=== PATIENT | female | born 1955 | race Caucasian/White ===

== ENCOUNTER → 2016-11-15 | Outpatient (CLI) | payer BC ==
[~2016-11-15] MED LIST: ACYC400T PO; ALBUAER INH; CALCIUM W/D PO; COEN10CA5 PO; FEXO1TAB46 PO; MULTCAP42 PO; OMEGCAP2 PO; ONDA4TAB7 SL
--- NOTE | 2016-11-15 13:17 | MAMMOGRAPHY REPORT ---
BILATERAL DIGITAL SCREENING MAMMOGRAM WITH CAD: 11/15/2016 CLINICAL HISTORY: Routine screening. Patient has no complaints. TECHNIQUE: Current study was also evaluated with a Computer Aided Detection (CAD) system. Bilatera l CC and MLO views were obtained. COMPARISON: Comparison is made to exams dated: 11/11/2015 mammogram, 11/06/2014 mammogram, 10/27/2013 ma mmogram, 08/08/2011 mammogram, and 06/27/2010 mammogram - [facility]. BREAST COMPOSITION: There are scattered areas of fibroglandular density in both breasts. FINDINGS: No suspicious masses, calcifications, or areas of architectural distortion are noted in e ither breast. There has been no significant interval change compared to prior exams. Small nodular asymmetry seen within the right superior posterior breast on the MLO view is stable compared to prio r exams including the 2013 exam, and considered benign given long-term stability. Left superior altagracia ast asymmetry on the MLO view is also stable. IMPRESSION: ACR BI-RADS CATEGORY 2: BENIGN There is no mammographic evidence of malignancy. A 1 year screening mammogram is recommended. The p atient will receive written notification of the results. Approximately 10% of breast cancers are not detected with mammography. A negative mammographic repor t should not delay biopsy if a clinically suggestive mass is present. Nancy Solitario M.D. /:11/15/2016 07:50:32 Director Of Sleep: Gabriela Akhtar, [facility] letter sent: Normal 1/2 BI-RADS Code: ACR BI-RADS Category 2: Benign
== END | disposition home or self-care (01) ==
LOC: C.MAMM 07:11
PROVIDERS: ATTEND Obstetrics & Gynecology
DX: Z12.31 Encounter for screening mammogram for malignant neoplasm of breast (principal)

== ENCOUNTER → 2017-11-16 | Outpatient (CLI) | payer BC ==
--- NOTE | 2017-11-19 07:43 | MAMMOGRAPHY REPORT ---
BILATERAL DIGITAL SCREENING MAMMOGRAM TOMOSYNTHESIS WITH CAD: 11/16/2017 CLINICAL HISTORY: Routine screening. Patient has no complaints. TECHNIQUE: Breast tomosynthesis in addition to standard 2D mammography was performed. Current study was also evaluated with a Computer Aided Detection (CAD) system. COMPARISON: Comparison is made to exams dated: 11/15/2016 mammogram, 11/11/2015 mammogram, 10/27/2013 ma mmogram, 10/18/2012 mammogram, 08/08/2011 mammogram, and 06/27/2010 mammogram - [facility]. BREAST COMPOSITION: There are scattered areas of fibroglandular density in both breasts. FINDINGS: No suspicious masses, calcifications, or areas of architectural distortion are noted in ei ther breast. There has been no significant interval change compared to prior exams. IMPRESSION: ACR BI-RADS CATEGORY 1: NEGATIVE There is no mammographic evidence of malignancy. A 1 year screening mammogram is recommended. The pa tient will receive written notification of the results. Approximately 10% of breast cancers are not detected with mammography. A negative mammographic report should not delay biopsy if a clinically suggestive mass is present. Nancy Solitario M.D. /:11/16/2017 07:37:35 Industrial Maintenance Electrician: Nancy PETERS(Maximus)(Reuben), [facility] letter sent: Normal 1/2 BI-RADS Code: ACR BI-RADS Category 1: Negative
== END | disposition home or self-care (01) ==
LOC: C.MAMM 07:08
PROVIDERS: ATTEND Obstetrics & Gynecology
DX: Z12.31 Encounter for screening mammogram for malignant neoplasm of breast (principal)

== ENCOUNTER → 2018-02-05 | Outpatient (CLI) | payer BC | END | disposition home or self-care (01) | LOC: C.PAPS 18:33 | PROVIDERS: ATTEND Obstetrics & Gynecology | DX: Z01.419 Encounter for gynecological examination (general) (routine) without abnormal findings (principal) ==

== ENCOUNTER 2025-03-19 01:53 | Observation (INO) ==
[2025-03-19 01:58] VITALS: TEMP 97.7
--- NOTE | 2025-03-19 02:16 | Emergency Department Note ---
Impression & Plan Tongue swelling ED Provider Note HISTORY OF PRESENT ILLNESS: Patient is a 70-year-old female presenting with tongue swelling. Patient reports that she went to bed tonight at around 11:30 AM and noticed that she was having some swelling on the right side of her tongue. Reports that it feels like the tongue is getting more swollen and she now is having some slight difficulties with swallowing. She denies any new food or drink exposures. Denies any biting of the tongue or trauma to the neck. She has never had this happen before. She is not on any ABRIL inhibitors or ARB's for blood pressure. She denies any recent fevers or dental infections. She denies any difficulties breathing. She states that it just feels very full in the back of her throat. ROS: as above PHYSICAL EXAM: Constitutional: Patient appears in no acute distress. HENT: Head: Normocephalic and atraumatic. Eyes: EOMI, PERRL Mouth/Throat: Mucous membranes moist. Uvula midline. Patient is noted to have right sided tongue swelling. The tongue is not elevated or protruding from the mouth. Sublingual region is soft and nontender. Patient does have some fullness to the submandibular region on the right side of her neck. No obvious dental caries. Neck: Trachea midline. Neck supple. Musculoskeletal: No edema, tenderness or deformity noted. Skin: Warm and dry. No rash, erythema, pallor or cyanosis Psychiatric: Appropriate mood and affect for situation. Neurological: Alert and keenly responsive. CN II-XII grossly intact, moving all extremities equally and fully. MDM: - Vitals signs showed hypertension - History obtained via patient. History as above. - Chronic conditions affecting care: THIAGO - Differential diagnoses include, but are not limited to: Benigno's angina; angioedema; anaphylaxis; tongue laceration; pharyngitis - Order placed for continuous cardiac monitoring. At this time, monitor showed rate of 84 bpm with normal sinus rhythm, per my interpretation. - External medical records reviewed. - Laboratory workup interpreted by myself showed normal WBC; stable electrolytes; normal AST/ALT - On reassessment at 3:15 AM, the patient is still complaining of tongue swelling and a fullness on the right side of her neck. Unclear etiology for the tongue swelling and right neck fullness. However, did discuss obtaining CT imaging with the patient, to which she was agreeable. - CT soft tissue neck with IV contrast showed focal asymmetry/thickening noted along the right side of dorsum of tongue without obvious enhancement or abscess. - Given patient's persistent tongue swelling, will admit for airway monitoring. - Discussion was had with shoe parts caser about patient's case and need for admission - Hospitalist consulted for admission - [facility] ASSESSMENT AND PLAN: Diagnosis: Tongue swelling Plan: Admit Past Med/Surg History Problem List (Updated 03/19/25 @ 05:11 by Helene Antonio MD) Tongue swelling (Acute) Left knee DJD Encounter for pre-operative examination Syncope (Acute) Milia Encounter for Routine Gynecological Examination Medical History Recent urinary tract infection Nausea and vomiting after administration of anesthetic agent THIAGO (obstructive sleep apnea) Asthma Retinal detachment Telangiectasia Hx of migraine headaches Surgical History Hx of colonoscopy Hx of removal of cyst History of tonsillectomy and adenoidectomy S/P wisdom tooth extraction S/P eye surgery S/P dilation and curettage Family History Father Myocardial infarction Uncle Myocardial infarction Denies family history of Ovarian cancer Prostate cancer Breast cancer Colorectal cancer Social History Smoking Status: Never smoker Second Hand Exposure: No; Do You Dip or Chew Tobacco: No; Hx Alcohol Use: Yes Hx Substance Use: No Preferred Language: Slovak Communication Ability: Effective Piano Mover Required: No Beliefs That Will Affect Care: None Current Living Situation: Spouse Feels Safe at Home: Yes Assistive Devices: CPAP and Glasses Allergies Allergies Allergy/AdvReac Type Severity Reaction Status Date / Time amoxicillin Allergy Intermediate RASH Verified 02/09/25 10:57 Penicillins Allergy Intermediate Rash Verified 02/09/25 10:57 Sulfa (Sulfonamide Allergy Intermediate Rash Verified 02/09/25 10:57 Antibiotics) sulfamethoxazole Allergy Intermediate RASH Verified 02/09/25 10:57 trimethoprim Allergy Intermediate RASH Verified 02/09/25 10:57 Home Meds Home Medications Medication Instructions Recorded Confirmed ipratropium bromide 17 1 inh inhalation DIRECTED PRN 03/17/19 02/09/25 mcg/actuation HFA aerosol inhaler Shortness Of Breath Or Wheezing simvastatin 20 mg tablet 20 mg PO HS 03/17/19 02/09/25 calcium carbonate (Calcium 600) 1,200 mg PO BID 08/03/22 02/09/25 glucosamine sulfate 500 mg tablet 500 mg PO DAILY 08/03/22 02/09/25 (Glucosamine) multivitamin 1 tab PO QAM 08/03/22 02/09/25 Previous Rx's Medication Instructions Recorded ibuprofen 600 mg tablet 600 mg PO TID PRN pain #20 tabs 08/21/22 acyclovir 400 mg tablet 400 mg PO DAILY #90 tabs 04/28/24 Results & Data (ED) Vital Signs Vital Signs - 24 hr 03/19/25 01:54 03/19/25 01:56 03/19/25 02:00 Temperature 36.5 C 36.5 C Temperature Source Temporal Artery Scan Oral Pulse Rate 84 Pulse Rate [Right Finger] 70 Respiratory Rate 18 16 Respiratory Effort / Characteristics Non-Labored Spontaneous Respiratory Depth Normal Respiratory Pattern Regular Blood Pressure 153/80 H Blood Pressure [Right Arm] 145/81 H Blood Pressure Mean 104 Blood Pressure Mean [Right Arm] 102 Pulse Oximetry 98 98 96 Oxygen Delivery Method Room Air Room Air Room Air Sepsis Recent Fever Within 48 Hours No Sepsis New/Unexplained Change in Mental Status No Sepsis Action Taken by Nursing No Action Required 03/19/25 02:25 03/19/25 03:28 03/19/25 04:00 Temperature 36.5 C Temperature Source Temporal Artery Scan Pulse Rate 67 Pulse Rate [Right Finger] 83 Respiratory Rate 18 Respiratory Effort / Characteristics Non-Labored Spontaneous Respiratory Depth Normal Respiratory Pattern Regular Blood Pressure Blood Pressure [Right Arm] 133/94 Blood Pressure Mean Blood Pressure Mean [Right Arm] 107 Pulse Oximetry 99 Oxygen Delivery Method Room Air Room Air Sepsis Recent Fever Within 48 Hours Sepsis New/Unexplained Change in Mental Status Sepsis Action Taken by Nursing Laboratory Data 03/19/25 02:17 03/19/25 02:17 Lab Results 03/19/25 Range/Units 02:17 WBC 7.37 (4.8-10.8) K/ul RBC 4.04 L (4.20-5.40) M/uL Hgb 11.9 L (12.0-16.0) g/dl Hct 36.9 L (37.0-47.0) % MCV 91.3 (80.0-100.0) fL MCH 29.5 (25.0-34.0) pg MCHC 32.2 (32.0-36.0) g/dL RDW Std Deviation 44.8 (36.4-46.3) fL RDW Coeff of Shravan 13.2 (11.5-14.5) % Plt Count 270 (130-400) K/uL MPV 10.1 (9.4-12.4) fL Immature Gran % (Auto) 0.3 % Neut % (Auto) 43.9 % Lymph % (Auto) 43.0 % Bent % (Auto) 9.2 % Eos % (Auto) 2.8 % Baso % (Auto) 0.8 % Neut # (Auto) 3.23 (1.40-6.50) K/uL Lymph # (Auto) 3.17 (1.20-3.40) K/uL Bent # (Auto) 0.68 H (0.11-0.59) K/uL Eos # (Auto) 0.21 (0.00-0.50) K/uL Baso # (Auto) 0.06 (0.00-0.20) K/uL Immature Gran # (Auto) 0.02 (0.01-0.20) K/uL Sodium 138 (136-145) mmol/L Potassium 4.1 (3.5-5.1) mmol/L Chloride 105 (98-107) mmol/L Carbon Dioxide 28 (21-32) mmol/L Anion Gap 5 (3-11) BUN 18 (6-23) mg/dl Creatinine 0.74 (0.6-1.2) mg/dl Est Cr Clr Drug Dosing 70.4 ml/min eGFR 86.98 BUN/Creatinine Ratio 24.3 H (10-20) Glucose 114 H (70-99(Fasting)) mg/dl Calcium 9.1 (8.6-10.3) mg/dl Total Bilirubin 0.4 (0.2-1.0) mg/dl AST 20 (13-39) U/L ALT 18 (7-52) U/L Alkaline Phosphatase 39 (34-104) U/L Total Protein 6.6 (6.0-8.3) gm/dl Albumin 4.0 (3.4-5.0) gm/dl Globulin 2.6 (2.5-4.0) gm/dl Albumin/Globulin Ratio 1.5 (0.9-2) Administered Medications Discontinued Medications Diphenhydramine HCl (Diphenhydramine 50 Mg/Ml Vial) 50 mg IV NOW STA Stop: 03/19/25 02:12 Last Admin: 03/19/25 02:18 Dose: 50 mg Documented By: FAVIOLA Famotidine (Pepcid 20mg Iv Push) 20 mg in 5 mls @ 2.5 mls/min IV NOW STA Stop: 03/19/25 02:12 Last Admin: 03/19/25 02:19 Dose: 2.5 mls/min Documented By: FAVIOLA Ioversol (Optiray 320 100ml) 100 ml IV ONCE ONE Stop: 03/19/25 03:57 Last Admin: 03/19/25 03:56 Dose: 93 ml Documented By: SHERRY Methylprednisolone (Methylprednisolone 125 Mg/2 Ml Vial) 80 mg IV NOW STA Stop: 03/19/25 02:12 Last Admin: 03/19/25 02:18 Dose: 80 mg Documented By: FAVIOLA Imaging Data Radiologist's Impression: Soft Tissue Neck CT 03/19/25 03:18 EXAM: CT soft tissue neck w con CLINICAL HISTORY: R sided neck swelling; R tongue swelling TECHNIQUE: Computed tomography of the neck was performed with intravenous contrast. Contiguous axial images were obtained. Reformatted coronal and sagittal images were also reviewed. If IV contrast material had not been administered, the likelihood of detecting abnormalities relevant to the patient's condition would have been substantially decreased. CT scan was performed according to ALARA (as low as reasonably achievable). COMPARISON: None. FINDINGS: Focal asymmetry/thickening is noted involving right side of dorsum of tongue without obvious enhancement - MRI correlation is suggested. Included intracranial substances, orbits, and paranasal sinuses are grossly unremarkable. Nasopharynx, oropharynx, oral cavity, hypopharynx and larynx are grossly unremarkable. Parotid, submandibular and thyroid glands are grossly unremarkable. Bilateral neck vessels are patent and show normal course, calibre and opacification. Scattered bilateral jugulo-digastric lymph nodes are present however, none are pathologically enlarged. Visualized included lung apices are grossly clear, and no acute osseous abnormality detected. IMPRESSION: Focal asymmetry/thickening is noted involving right side of dorsum of tongue without obvious enhancement. Suboptimal evaluation of the oral cavity due to extensive metallic artifacts from the dental implants. No other abnormality seen. Electronically signed by Gucci Mosqueda 03-19-2025 05:16 AM Discharge Plan Visit Data Chief Complaint: Allergic Reaction Stated Complaint: TONGUE SWELLING ED Provider: Helene Antonio Discharge Problem: Tongue swelling Condition: Fair Forms Stand Alone Forms: [facility] Prescriptions Prescriptions: No Action acyclovir 400 mg tablet 400 mg PO DAILY Qty: 90 3RF ipratropium bromide 17 mcg/actuation HFA aerosol inhaler 1 inh inhalation DIRECTED PRN (Reason: Shortness Of Breath Or Wheezing) simvastatin 20 mg tablet 20 mg PO HS ibuprofen 600 mg tablet 600 mg PO TID PRN (Reason: pain) Qty: 20 0RF multivitamin Tablet 1 tab PO QAM glucosamine sulfate [Glucosamine] 500 mg Tablet 500 mg PO DAILY Rx Instructions: administer with meals calcium carbonate [Calcium 600] 600 mg calcium (1,500 mg) Tablet 1,200 mg PO BID Referrals Referrals: Gabby Broussard PA-C [Primary Care Provider] -
[2025-03-19] MEDS: diphenhydrAMINE 50 MG/ML VIAL IV STA (02:18)
[2025-03-19] MEDS: FAMOTIDINE 20MG IV PUSH 20 MG/5 ML SYR IV STA (02:19)
[2025-03-19 02:28] LABS: Hematocrit (blood only) 36.9 % (37.0-47.0); Hemoglobin 11.9 g/dl (12.0-16.0); Immature Granulocytes # (auto) 0.02 K/uL (0.01-0.20); Immature Granulocytes % (auto) 0.3 %; Mean Corpuscular Hemoglobin 29.5 pg (25.0-34.0); Mean Corpuscular Volume 91.3 fL (80.0-100.0); Platelet Count 270 K/uL (130-400); RDW Standard Deviation 44.8 fL (36.4-46.3); Red Blood Count 4.04 M/uL (4.20-5.40); White Blood Count 7.37 K/ul (4.8-10.8)
[2025-03-19 02:45] LABS: Alanine Aminotransferase 18.0 U/L (7-52); Albumin Globulin Ratio 1.5 (0.9-2); Alkaline Phosphatase 39.0 U/L (34-104); Anion Gap 5.0 (3-11); Bilirubin,Total 0.4 mg/dl (0.2-1.0); Blood Urea Nitrogen 18.0 mg/dl (6-23); Calcium 9.1 mg/dl (8.6-10.3); Carbon Dioxide 28.0 mmol/L (21-32); Chloride 105.0 mmol/L (98-107); Creatinine Clr Calc Pharmacy 70.4 ml/min; Globulin 2.6 gm/dl (2.5-4.0); Glucose 114.0 mg/dl (70-99(Fasting)); Potassium 4.1 mmol/L (3.5-5.1); Sodium 138.0 mmol/L (136-145); Total Protein 6.6 gm/dl (6.0-8.3)
[2025-03-19] MEDS: OPTIRAY 320 100ml IV ONE (03:56)
--- NOTE | 2025-03-19 05:16 | CT Scan Report ---
EXAM: CT soft tissue neck w con CLINICAL HISTORY: R sided neck swelling; R tongue swelling TECHNIQUE: Computed tomography of the neck was performed with intravenous contrast. Contiguous axial images were obtained. Reformatted coronal and sagittal images were also reviewed. If IV contrast material had not been administered, the likelihood of detecting abnormalities relevant to the patient's condition would have been substantially decreased. CT scan was performed according to ALARA (as low as reasonably achievable). COMPARISON: None. FINDINGS: Focal asymmetry/thickening is noted involving right side of dorsum of tongue without obvious enhancement - MRI correlation is suggested. Included intracranial substances, orbits, and paranasal sinuses are grossly unremarkable. Nasopharynx, oropharynx, oral cavity, hypopharynx and larynx are grossly unremarkable. Parotid, submandibular and thyroid glands are grossly unremarkable. Bilateral neck vessels are patent and show normal course, calibre and opacification. Scattered bilateral jugulo-digastric lymph nodes are present however, none are pathologically enlarged. Visualized included lung apices are grossly clear, and no acute osseous abnormality detected. IMPRESSION: Focal asymmetry/thickening is noted involving right side of dorsum of tongue without obvious enhancement. Suboptimal evaluation of the oral cavity due to extensive metallic artifacts from the dental implants. No other abnormality seen. Electronically signed by Gucci Mosqueda 03-19-2025 05:16 AM
[2025-03-19] MEDS ORDERED: ALBUT/IPRATROP 3MG/0.5MG NEB 3 ML VIAL NEB PRN (05:44)
--- NOTE | 2025-03-19 06:08 | History & Physical Report ---
Date of Service March 19, 2025 Assessment & Plan (1) Tongue swelling: (2) Allergic reaction: (3) Asthma: (4) Hyperlipidemia: Plan The patient is a 70-year-old female with past medical history including asthma, hyperlipidemia, left knee osteoarthritis and on chronic viral prophylaxis. The patient presents to the emergency department with complaint of tongue swelling more so on the right side that she noticed around 11:30 PM, she was going to bed. As her tongue began to continue to swell more, she became concerned, and presented to the ED for assessment. In the emergency department, CT soft tissue neck was ordered and pending. In the ED she received the following: Solu-Medrol 80 mg IV, Benadryl 50 mg IV, and famotidine 20 mg IV. She was then referred for evaluation for admission. Patient reports that she had a flu shot 3 days ago. She also reports that she was at the [facility] yesterday, where they were undergoing course maintenance. Allergic reaction/asymmetric swelling right lateral tongue compared to left- Patient had a flu shot 3 days ago, but unlikely source of reaction Patient was at the [facility] yesterday, and she reports that there was work being performed on lawn maintenance etc. Patient received from the ED the following: Solu-Medrol 80 mg IV, Benadryl 50 mg IV, and famotidine 20 mg IV Admitted on the following: Methylprednisolone 40 mg IV every 8 hours, Benadryl 25 mg IV every 4 hours as needed, famotidine 20 mg IV twice daily N.p.o. until received 500 cc of IV fluids, then if passes swallowing test, can gradually begin IV diet and advance as tolerated NSS + KCl 20 mEq at 100 mL/h x 1 L, complete the full liter Zofran 4 mg IV every 6 hours as needed Acetaminophen 1 g IV every 8 hours as needed for mild pain or fever Order RAST test for zone 3 allergens [place], and food allergen panel Asthma- Primarily exercise-induced Has good lung excursion, and minimal changes at bases DuoNebs every 2 hours as needed Can resume usual inhaler as needed upon discharge Hyperlipidemia- Hold simvastatin until taking oral Viral prophylaxis- Hold acyclovir until able to take oral intake History of Present Illness Chief Complaint: The patient presents to the emergency department with complaint of tongue swelling more so on the right side that she noticed around 11:30 PM, she was going to bed. As her tongue began to continue to swell more, she became conc erned, and presented to the ED for assessment. In the emergency department, CT soft tissue neck was ordered and pending. In the ED she received the following: Solu-Medrol 80 mg IV, Benadryl 50 mg IV, and famotidine 20 mg IV. She was then referred for evaluation for admission. Primary Care Provider: Gabby Broussard PA-C The patient is a 70-year-old female with past medical history including asthma, hyperlipidemia, left knee osteoarthritis and on chronic viral prophylaxis. The patient presents to the emergency department with complaint of tongue swelling more so on the right side that she noticed around 11:30 PM, she was going to bed. As her tongue began to continue to swell more, she became concerned, and presented to the ED for assessment. In the emergency department, CT soft tissue neck was ordered and pending. In the ED she received the following: Solu-Medrol 80 mg IV, Benadryl 50 mg IV, and famotidine 20 mg IV. She was then referred for evaluation for admission. Patient reports that she had a flu shot 3 days ago. She also reports that she was at the [facility] yesterday, where they were undergoing course maintenance. Allergies Allergy/AdvReac Type Severity Reaction Status Date / Time amoxicillin Allergy Intermediate RASH Verified 02/09/25 10:57 Penicillins Allergy Intermediate Rash Verified 02/09/25 10:57 Sulfa (Sulfonamide Allergy Intermediate Rash Verified 02/09/25 10:57 Antibiotics) sulfamethoxazole Allergy Intermediate RASH Verified 02/09/25 10:57 trimethoprim Allergy Intermediate RASH Verified 02/09/25 10:57 Home Medications Medication Instructions Recorded Confirmed Type ipratropium bromide 17 1 inh inhalation DIRECTED PRN 03/17/19 02/09/25 History mcg/actuation HFA aerosol inhaler Shortness Of Breath Or Wheezing simvastatin 20 mg tablet 20 mg PO HS 03/17/19 02/09/25 History calcium carbonate (Calcium 600) 1,200 mg PO BID 08/03/22 02/09/25 History glucosamine sulfate 500 mg tablet 500 mg PO DAILY 08/03/22 02/09/25 History (Glucosamine) multivitamin 1 tab PO QAM 08/03/22 02/09/25 History ibuprofen 600 mg tablet 600 mg PO TID PRN pain #20 tabs 08/21/22 02/09/25 Rx acyclovir 400 mg tablet 400 mg PO DAILY #90 tabs 04/28/24 02/09/25 Rx Past Med/Surg History Problem List (Updated 03/19/25 @ 06:03 by Shoaib Mcghee MD) Allergic reaction Tongue swelling (Acute) Left knee DJD Encounter for pre-operative examination Syncope (Acute) Milia Encounter for Routine Gynecological Examination Medical History (Updated 03/19/25 @ 06:03 by Shoaib Mcghee MD) Hyperlipidemia Recent urinary tract infection 08/03/22 treated [place] [facility] Nausea and vomiting after administration of anesthetic agent THIAGO (obstructive sleep apnea) cpap Asthma Exercise induced- uses daily Retinal detachment w/ B/L repair Telangiectasia Hx of migraine headaches has not had one in years Surgical History Hx of colonoscopy Hx of removal of cyst finger History of tonsillectomy and adenoidectomy S/P wisdom tooth extraction S/P eye surgery retinal detachment S/P dilation and curettage Family History Father Myocardial infarction Uncle Myocardial infarction Denies family history of Ovarian cancer Prostate cancer Breast cancer Colorectal cancer Social History Smoking Status: Never smoker Second Hand Exposure: No; Do You Dip or Chew Tobacco: No; Hx Alcohol Use: Yes Hx Substance Use: No Preferred Language: Uzbek Communication Ability: Effective 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 Beliefs That Will Affect Care: None Current Living Situation: Spouse Feels Safe at Home: Yes Assistive Devices: CPAP and Glasses Review of Systems Review of Systems: The patient denies chest pain, palpitations, shortness of breath, dyspnea on exertion, lower extremity swelling, fevers, chills, sweats, fatigue, nausea, vomiting, diarrhea , constipation, abdominal pain, pelvic pain, blood in urine or stool, dysuria, urinary frequency or urgency, lightheadedness, dizziness, headache, memory loss, loss of consciousness, rash, abnormal bruising or bleeding, imbalance, focal or generalized weakness, numbness or tingling in arms or legs, generalized arthralgias or myalgias, back or neck pain, or night sweats. The review of systems is otherwise negative other than for that already noted above, and at least 10 systems have been reviewed. Physical Exam Physical Exam: The patient is awake, alert and oriented 3, well developed and well nourished, normocephalic and atraumatic, lying in bed and in no acute distress. HEENT--PERRL, EOMI, mucous membranes dry. Swelling of tongue, most prominent on the right, with mild oropharyngeal edema, primarily on the right. No stridor Neck--supple. No JVD. No bruits. Thyroid normal, trachea midline, no adenop athy. Heart--normal S1 and S2. No murmurs, rubs or gallops. Lungs--few coarse breath sounds at the bases. No respiratory distress, no accessory muscle use. Abdomen--normal bowel sounds and soft. Nontender. Nondistended, no hernias or masses, no organomegaly. Extremities--no cyanosis or clubbing. No edema. There are good distal pulses b/l. Dermatologic--normal skin turgor, normal color, no abnormal lymph nodes, no rash. Neurologic--cranial nerves II through XII grossly intact. Rheumatologic--normal range of motion. Psychiatric--normal affect. Results & Data Results & Data Vital Signs (Past 12 Hours) Vital Signs Temp Pulse Pulse Resp BP BP Pulse Ox 03/19/25 04:00 36.5 C 83 18 133/94 99 03/19/25 03:28 67 03/19/25 02:25 03/19/25 02:00 36.5 C 70 16 145/81 H 96 03/19/25 01:56 36.5 C 84 18 153/80 H 98 03/19/25 01:54 98 O2 Del Method 03/19/25 04:00 Room Air 03/19/25 03:28 03/19/25 02:25 Room Air 03/19/25 02:00 Room Air 03/19/25 01:56 Room Air 03/19/25 01:54 Room Air Laboratory Results Laboratory Results WBC 7.37 K/ul (4.8-10.8) 03/19/25 02:17 RBC 4.04 M/uL (4.20-5.40) L 03/19/25 02:17 Hgb 11.9 g/dl (12.0-16.0) L 03/19/25 02:17 Hct 36.9 % (37.0-47.0) L 03/19/25 02:17 MCV 91.3 fL (80.0-100.0) 03/19/25 02:17 MCH 29.5 pg (25.0-34.0) 03/19/25 02:17 MCHC 32.2 g/dL (32.0-36.0) 03/19/25 02:17 RDW Std Deviation 44.8 fL (36.4-46.3) 03/19/25 02:17 RDW Coeff of Shravan 13.2 % (11.5-14.5) 03/19/25 02:17 Plt Count 270 K/uL (130-400) 03/19/25 02:17 MPV 10.1 fL (9.4-12.4) 03/19/25 02:17 Immature Gran % (Auto) 0.3 % 03/19/25 02:17 Neut % (Auto) 43.9 % 03/19/25 02:17 Lymph % (Auto) 43.0 % 03/19/25 02:17 Trimble % (Auto) 9.2 % 03/19/25 02:17 Eos % (Auto) 2.8 % 03/19/25 02:17 Baso % (Auto) 0.8 % 03/19/25 02:17 Neut # (Auto) 3.23 K/uL (1.40-6.50) 03/19/25 02:17 Lymph # (Auto) 3.17 K/uL (1.20-3.40) 03/19/25 02:17 Trimble # (Auto) 0.68 K/uL (0.11-0.59) H 03/19/25 02:17 Eos # (Auto) 0.21 K/uL (0.00-0.50) 03/19/25 02:17 Baso # (Auto) 0.06 K/uL (0.00-0.20) 03/19/25 02:17 Immature Gran # (Auto) 0.02 K/uL (0.01-0.20) 03/19/25 02:17 Sodium 138 mmol/L (136-145) 03/19/25 02:17 Potassium 4.1 mmol/L (3.5-5.1) 03/19/25 02:17 Chloride 105 mmol/L (98-107) 03/19/25 02:17 Carbon Dioxide 28 mmol/L (21-32) 03/19/25 02:17 Anion Gap 5 (3-11) 03/19/25 02:17 BUN 18 mg/dl (6-23) 03/19/25 02:17 Creatinine 0.74 mg/dl (0.6-1.2) 03/19/25 02:17 Est Cr Clr Drug Dosing 70.4 ml/min 03/19/25 02:17 eGFR 86.98 03/19/25 02:17 BUN/Creatinine Ratio 24.3 (10-20) H 03/19/25 02:17 Glucose 114 mg/dl (70-99(Fasting)) H 03/19/25 02:17 Calcium 9.1 mg/dl (8.6-10.3) 03/19/25 02:17 Total Bilirubin 0.4 mg/dl (0.2-1.0) 03/19/25 02:17 AST 20 U/L (13-39) 03/19/25 02:17 ALT 18 U/L (7-52) 03/19/25 02:17 Alkaline Phosphatase 39 U/L (34-104) 03/19/25 02:17 Total Protein 6.6 gm/dl (6.0-8.3) 03/19/25 02:17 Albumin 4.0 gm/dl (3.4-5.0) 03/19/25 02:17 Globulin 2.6 gm/dl (2.5-4.0) 03/19/25 02:17 Albumin/Globulin Ratio 1.5 (0.9-2) 03/19/25 02:17 Impressions Soft Tissue Neck CT 03/19/25 03:18 EXAM: CT soft tissue neck w con CLINICAL HISTORY: R sided neck swelling; R tongue swelling TECHNIQUE: Computed tomography of the neck was performed with intravenous contrast. Contiguous axial images were obtained. Reformatted coronal and sagittal images were also reviewed. If IV contrast material had not been administered, the likelihood of detecting abnormalities relevant to the patient's condition would have been substantially decreased. CT scan was performed according to ALARA (as low as reasonably achievable). COMPARISON: None. FINDINGS: Focal asymmetry/thickening is noted involving right side of dorsum of tongue without obvious enhancement - MRI correlation is suggested. Included intracranial substances, orbits, and paranasal sinuses are grossly unremarkable. Nasopharynx, oropharynx, oral cavity, hypopharynx and larynx are grossly unremarkable. Parotid, submandibular and thyroid glands are grossly unremarkable. Bilateral neck vessels are patent and show normal course, calibre and opacification. Scattered bilateral jugulo-digastric lymph nodes are present however, none are pathologically enlarged. Visualized included lung apices are grossly clear, and no acute osseous abnormality detected. IMPRESSION: Focal asymmetry/thickening is noted involving right side of dorsum of tongue without obvious enhancement. Suboptimal evaluation of the oral cavity due to extensive metallic artifacts from the dental implants. No other abnormality seen. Electronically signed by Gucci Mosqueda 03-19-2025 05:16 AM Code Status & VTE Plan Code Status Full code VTE Prophylaxis Plan VTE Prophylaxis will be ordered: Yes PG Care Time/CCT Total # of Minutes Spent Total Time Spent with Patient: Total time spent is greater than 50% in coordination of care (as documented) at patient's floor/unit and/or counseling patient: Coding Level of Care Code 16331 INT INP/OBS CARE 3/75MIN Diagnoses Tongue swelling R22.0 Allergic reaction T78.40XA Asthma J45.909 Hyperlipidemia E78.5
[2025-03-19] MEDS: NSS + 20MEQ KCL 20 MEQ/1,000 ML BAG IV SCH (06:52)
[2025-03-19] MEDS ORDERED: ACETAMINOPHEN 1000 MG/100 ML IV IV PRN (08:34)
[2025-03-19] MEDS ORDERED: ONDANSETRON INJ 2 MG/ML 2 ML VIAL IV PRN (08:34)
[2025-03-19] MEDS: diphenhydrAMINE 50 MG/ML VIAL IV SCH (09:13)
[2025-03-19] MEDS ORDERED: methylPREDNISolone 10 mg/mL (For Ped Dose < 7mg) IV SCH (10:00)
[2025-03-19] MEDS ORDERED: diphenhydrAMINE 50 MG/ML VIAL IV PRN (10:33)
--- NOTE | 2025-03-19 10:40 | Discharge Summary ---
Discharge Summary Date of Service March 19, 2025 Principal Dx & Hospital Course #1 = Principal Diagnosis (1) Tongue swelling: (2) Allergic reaction: (3) Asthma: (4) Hyperlipidemia: Plan The patient is a 70-year-old female with past medical history including asthma, hyperlipidemia, left knee osteoarthritis and on chronic viral prophylaxis. The patient presents to the emergency department with complaint of tongue swelling more so on the right side that she noticed around 11:30 PM, she was going to bed. As her tongue began to continue to swell more, she became concerned, and presented to the ED for assessment. In the emergency department, CT soft tissue neck was ordered and showed asymmetric swelling of the right side of the tongue but otherwise patent airway. She received IV Solu-Medrol 80 mg IV, Benadryl 50 mg IV, and famotidine 20 mg IV. She was then referred for evaluation for admission. Patient reports that she had a flu shot 3 days ago. She also reports that she was at the [facility] yesterday, where they were undergoing course maintenance. She does have a history of allergies and received allergy shots in the past as well as a history of exercise-induced asthma and eczema. #Allergic reaction/asymmetric swelling right lateral tongue compared to left- Much improved after initial treatment. Discussed care with [facility] who was consulted. - Discharge to home on prednisone 40 mg p.o. daily x 5 days, Zyrtec 10 mg p.o. twice daily, and gave EpiPen in case of severe allergic reaction in the future - [employer] prescribed her as needed hydroxyzine and prednisone for her trip to [place] next week - RAST test for zone 3 allergens [place], and food allergen panel, IgE pending at the time of discharge - Has follow-up appointment with [facility] on 03/20 for further testing and evaluation - If right side of tongue still slightly asymmetric after allergic reaction completely resolved, recommend further imaging with MRI of the tongue in the future-defer to PCP #Exercise-induced asthma -Uses Atrovent as needed exercise #Hyperlipidemia- -Continue simvastatin on discharge #Mild anemia-normocytic - Follow-up with PCP after discharge for further workup #Genital herpes-no acute issues -Continue prophylactic acyclovir Disposition-stable for discharge to home. Discussed care with [facility] on the day of discharge Notes For Next Care Provider Follow-up for mild anemia with PCP Consider MRI of the tongue if asymmetry not resolving completely Medication Changes From Visit Added prednisone 40 mg p.o. daily x 5 days Added Zyrtec 10 mg p.o. twice daily Admission HPI Per Admitting Provider The patient is a 70-year-old female with past medical history including asthma, hyperlipidemia, left knee osteoarthritis and on chronic viral prophylaxis. The patient presents to the emergency department with complaint of tongue swelling more so on the right side that she noticed around 11:30 PM, she was going to bed. As her tongue began to continue to swell more, she became concerned, and presented to the ED for assessment. In the emergency department, CT soft tissue neck was ordered and pending. In the ED she received the following: Solu-Medrol 80 mg IV, Benadryl 50 mg IV, and famotidine 20 mg IV. She was then referred for evaluation for admission. Patient reports that she had a flu shot 3 days ago. She also reports that she was at the [facility] yesterday, where they were undergoing course maintenance. Discharge Exam Constitutional WD/WN, vitals as above Eyes PERRL, conjunctivae normal, anicteric sclerae ENMT external ear and nose normal, oropharynx normal (Except mildly enlarged posterior right side of tongue compared to left) Airway widely patent Neck trachea midline, no thyromegaly No masses or crepitus of the neck Respiratory normal respiratory effort, lungs clear to auscultation Cardiovascular RRR, no murmur, no edema Chest (Breasts) Chest: normal inspection of chest Gastrointestinal (Abdomen) normal bowel sounds, soft, nontender, no hepatosplenomegaly Musculoskeletal Extremities: extremities normal to inspection; no cyanosis and no clubbing Skin no rashes, warm and dry Neurologic moves all extremities and awake; no focal motor deficits Psychiatric A+Ox3, euthymic affect Lymphatic no lymphedema Discharge Plan Discharge Items Patient Disposition: Home - Self-Care Reason For Visit: ALLERGIC REATION, TONGUE/OROPHARYNGEAL SWELLING Discharge Diagnosis: Allergic reaction Tongue swelling Condition on Discharge: Good Activity: Resume your previous activity Non-emergency contact: Primary Care Provider Call non-emergency contact if: you have any medication questions and your symptoms worsen Follow-up/Referrals: Gabby Broussard PA-C [Primary Care Provider] - (Follow-up within 1-2 weeks) Miguelina Cooper MD [Physician] - 03/20/25 (Follow-up on 03/20 as scheduled) Diet: Regular Addtl Attending Provider Instructions: You were admitted with tongue swelling which was potentially an allergic reaction, but could also be spontaneous. Please continue on Zyrtec 10 mg twice daily and a course of steroids with prednisone to continue treating in case of allergic reaction. Do not take your Tamy while you are on Zyrtec. Please follow-up with the [facility] on 03/20 as scheduled. If your symptoms worsen or return, please return immediately to the emergency department. You had a mild anemia noted on your complete blood count. Please have your PCP evaluate this further and follow-up. Pending Studies at Discharge: Yes (RAST panel, IgE) Stand-Alone Forms: [facility] Medications and DC Order Prescriptions: New epinephrine [EpiPen 2-Kiko] 0.3 mg/0.3 mL auto-injector 0.3 mg IM Q3H PRN (Reason: anaphylaxis) Qty: 2 0RF cetirizine 10 mg Tablet 10 mg PO BID Qty: 60 0RF prednisone 20 mg tablet 40 mg PO DAILY 5 Days Qty: 10 0RF Continued acyclovir 400 mg tablet 400 mg PO DAILY Qty: 90 3RF prednisone 20 mg tablet 40 mg PO DAILY PRN (Reason: swelling) Qty: 20 0RF hydroxyzine HCl 25 mg tablet 25 mg PO Q8H PRN (Reason: swelling) Qty: 30 6RF Rx Instructions: one tablet every 8 hours as needed for swelling attacks ipratropium bromide 17 mcg/actuation HFA aerosol inhaler 1 inh inhalation DIRECTED PRN (Reason: Shortness Of Breath Or Wheezing) Patient Comments: 03/19- no fill history unable to verify simvastatin 20 mg tablet 20 mg PO HS ibuprofen 600 mg tablet 600 mg PO TID PRN (Reason: pain) Qty: 20 0RF Patient Comments: 03/19- otc unable to verify multivitamin Tablet 1 tab PO QAM Patient Comments: 03/19- otc unable to verify glucosamine sulfate [Glucosamine] 500 mg Tablet 500 mg PO DAILY Patient Comments: 03/19- otc unable to verify Rx Instructions: administer with meals calcium carbonate [Calcium 600] 600 mg calcium (1,500 mg) Tablet 1,200 mg PO BID Patient Comments: 03/19- otc unable to verify Discharge Orders: Discharge Order (Routine); Ordered 03/19/25 Ordered By: Dorothy Blackmon Admission Data Admit Date/Time: 03/19/25 05:53 Attending Provider: Shoaib Mcghee Admit Provider: Shoaib Mcghee Primary Care Provider: Gabby Broussard Other Providers: Shoaib Mcghee; Miguelina Cooper Hospital Stay Data Consultations 03/19/25 05:54 ED Decision to Admit Stat 03/19/25 07:37 Consult Allergy / Immunology Routine Diagnostic Imagining Performed 03/19/25 03:18 CT soft tissue neck w con Stat Pending Results Patient Have Any Pending Studies at Discharge: Yes (RAST panel, IgE) Discharge Instructions Given to Patient (Per Discharging Provider) You were admitted with tongue swelling which was potentially an allergic reaction, but could also be spontaneous. Please continue on Zyrtec 10 mg twice daily and a course of steroids with prednisone to continue treating in case of allergic reaction. Do not take your Tamy while you are on Zyrtec. Please follow-up with the [facility] on 03/20 as scheduled. If your symptoms worsen or return, please return immediately to the emergency department. You had a mild anemia noted on your complete blood count. Please have your PCP evaluate this further and follow-up. Total Time Total Time Spent Total Time Spent (In Minutes): 45 minutes Total Time Includes: Examination of the Patient, Discharge Planning, Medication Reconciliation and Communication With Other Providers Coding Level of Care Code 28203 INP/OBS DISCH >30 MIN Diagnoses Tongue swelling R22.0 Allergic reaction T78.40XA Asthma J45.909 Hyperlipidemia E78.5
[2025-03-19] MEDS: CETIRIZINE HCL 10 MG TABLET PO ONE (10:50)
[2025-03-19 12:11] VITALS: O2SAT 94
[2025-03-19 12:51] VITALS: BP 113/70; PULSE 99; RESP 18
[2025-03-19] MEDS ORDERED: FAMOTIDINE 20MG IV PUSH 20 MG/5 ML SYR IV SCH (15:00)
--- NOTE | 2025-03-19 15:47 | Allergy & Immunology Consult ---
Date of Consultation March 19, 2025 Assessment & Plan (1) Tongue swelling: We discussed that there is not a clear allergic trigger and so I do not believe that this was an allergic reaction to something. If this were a food allergy, symptoms would have occurred within minutes of the exposure. She has not started any new medicines. 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 However the differential diagnosis would also include acquired angioedema, and less likely hereditary angioedema. In terms of the idiopathic angioedema, sometimes this can be caused by mast cell disorders, eosinophil disorders, thyroid dysfunction, as well as a few other entities. We will perform blood work to screen for each of these conditions. This can be done as an outpatient. Moving forward, I recommend that she start cetirizine 10 mg p.o. twice daily and this should prevent episodes of histamine induced urticaria/angioedema until we can get a definitive answer. I will set up a follow-up visit to see her in clinic tomorrow so we can keep a close eye on things. She will be traveling to [place] next week and was worried about what to do if she has another attack. We discussed that if she starts getting swelling acutely I would recommend that she take an older antihistamine like hydroxyzine which tends to be more effective and if she still continues to get swelling, she should take 40 mg of prednisone and that should abort the attack. I will send in a prescription so she can pick this up and take it with her. Otherwise, we can discuss further strategies when we see her in clinic. Total time for today is 40 minutes which includes reviewing records prior to patient arrival, the [id number] visit, as well as time to record documentation after patient departure. History of Present Illness Reason for Consultation: Tongue swelling Attending Physician: Shoaib Mcghee MD History of Present Illness This is a 70-year-old female who presented with tongue swelling last night. She notes around 11 PM that the right side of her tongue started to swell. She did not have any new exposures to medicines or foods. She has no history of ABRIL inhibitor use. She was concerned about the possibility of airway close or should she went to the ER. She was treated with antihistamines and steroids and her symptoms have significant improved. She denies any previous history of hives or swelling. However she does tend to get large local reactions with bug bites. She also notes chronic itching, but none of this is different than her typical baseline. She does also have a history of allergic rhinitis, but her symptoms are typically controlled with a half of an Tamy daily. Allergies Allergy/AdvReac Type Severity Reaction Status Date / Time amoxicillin Allergy Intermediate RASH Verified 02/09/25 10:57 Penicillins Allergy Intermediate Rash Verified 02/09/25 10:57 Sulfa (Sulfonamide Allergy Intermediate Rash Verified 02/09/25 10:57 Antibiotics) sulfamethoxazole Allergy Intermediate RASH Verified 02/09/25 10:57 trimethoprim Allergy Intermediate RASH Verified 02/09/25 10:57 Home Medications Medication Instructions Recorded Confirmed Type ipratropium bromide 17 1 inh inhalation DIRECTED PRN 03/17/19 03/19/25 History mcg/actuation HFA aerosol inhaler Shortness Of Breath Or Wheezing simvastatin 20 mg tablet 20 mg PO HS 03/17/19 03/19/25 History calcium carbonate (Calcium 600) 1,200 mg PO BID 08/03/22 03/19/25 History glucosamine sulfate 500 mg tablet 500 mg PO DAILY 08/03/22 03/19/25 History (Glucosamine) multivitamin 1 tab PO QAM 08/03/22 03/19/25 History ibuprofen 600 mg tablet 600 mg PO TID PRN pain #20 tabs 08/21/22 03/19/25 Rx acyclovir 400 mg tablet 400 mg PO DAILY #90 tabs 04/28/24 03/19/25 Rx cetirizine 10 mg tablet 10 mg PO BID #60 tabs 03/19/25 Rx epinephrine 0.3 mg/0.3 mL 0.3 mg (0.3 mL) IM Q3H PRN 03/19/25 Rx injection, auto-injector (EpiPen anaphylaxis #2 [id number] [id number]) hydroxyzine HCl 25 mg tablet 25 mg PO Q8H PRN swelling #30 tabs 03/19/25 Rx prednisone 20 mg tablet 40 mg (2 x 20 mg) PO DAILY 5 days 03/19/25 Rx #10 tabs prednisone 20 mg tablet 40 mg (2 x 20 mg) PO DAILY PRN 03/19/25 Rx swelling #20 tabs Patient History Medical History (Updated 03/19/25 @ 06:03 by Shoaib Mcghee MD) Hyperlipidemia Recent urinary tract infection 08/03/22 treated [place] ER Nausea and vomiting after administration of anesthetic agent THIAGO (obstructive sleep apnea) cpap Asthma Exercise induced- uses daily Retinal detachment w/ B/L repair Telangiectasia Hx of migraine headaches has not had one in years Surgical History Hx of colonoscopy Hx of removal of cyst finger History of tonsillectomy and adenoidectomy S/P wisdom tooth extraction S/P eye surgery retinal detachment S/P dilation and curettage Family History Father Myocardial infarction Uncle Myocardial infarction Denies family history of Ovarian cancer Prostate cancer Breast cancer Colorectal cancer Social History Smoking Status: Never smoker Second Hand Exposure: No; Do You Dip or Chew Tobacco: No; Hx Alcohol Use: Yes Hx Substance Use: No Preferred Language: French Communication Ability: Effective Visual Impairment: No Limitations 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 Beliefs That Will Affect Care: None Current Living Situation: Spouse Feels Safe at Home: Yes Assistive Devices: Glasses Review of Systems Review of Systems: As per HPI otherwise negative Physical Exam Constitutional: WD/WN, vitals as above no altered mental status and not in distress Eyes: no conjunctival abnormality, no scleral abnormality and sclerae not anicteric ENMT: Ears: no TM abnormality and able to visualize TM Nose: no turbinate abnormality, no nasal mucous membrane abnormality, no septum abnormality and no nasal discharge Mouth: + oropharynx abnormality (Mild tongue swelling); no lip abnormality Throat: no postnasal drainage Neck: trachea midline, no thyromegaly trachea midline Thyroid: normal thyroid Respiratory: normal respiratory effort; no respiratory distress Ausc ultation: no crackles, no rhonchi and no wheezes Cardiovascular: RRR, no murmur, no edema Rate/Rhythm: regular rate and regular rhythm Heart Sounds: normal S1 and normal S2; no murmur and no cardiac rub Extremities: no edema Gastrointestinal (Abdomen): Inspection/Auscultation: abdomen normal to inspection and normal bowel sounds; abdomen not distended Percussion/Palpation: abdomen nontender Musculoskeletal: Head/Neck/Chest: normocephalic; head normal to inspection Skin: no rashes Neurologic: awake Speech / Cognition: normal cognition Motor/Sensory: normal movement Psychiatric: A+Ox3, euthymic affect Lymphatic: no lymphadenopathy Results & Data Vital Signs (Past 12 Hours) Vital Signs Temp Pulse Pulse Resp BP Pulse Ox Pulse Ox 03/19/25 12:50 36.5 C 99 H 18 113/70 94 03/19/25 12:11 95 H 20 118/58 L 94 03/19/25 08:34 83 20 95 03/19/25 08:34 92 03/19/25 08:00 79 20 126/71 94 03/19/25 07:55 87 03/19/25 06:00 74 18 135/71 92 03/19/25 04:00 36.5 C 83 18 133/94 99 O2 Del Method O2 Del Method 03/19/25 12:50 03/19/25 12:11 Room Air 03/19/25 08:34 Room Air 03/19/25 08:34 Room Air 03/19/25 08:00 Room Air 03/19/25 07:55 03/19/25 06:00 Room Air 03/19/25 04:00 Room Air Coding Level of Care Code 15780 INT INP/OBS CARE 1/40MIN Diagnoses Tongue swelling R22.0
[2025-03-19] MEDS ORDERED: CETIRIZINE HCL 10 MG TABLET PO SCH (21:00)
[2025-03-24 17:57] LABS: Almond Allergen IgE <0.10 kU/L; Brazil Nut Class 0; Cockroach IgE Ab <0.10 kU/L; Cottonwood Class 0; Hazelnut (f17)IgE <0.10 kU/L; Macadamia Nut (rf345) IgE <0.10 kU/L; Macadamia Nut Class 0; Milk, Cow's Class 0; Milk, Cow's IgE <0.10 kU/L; Mouse Urine Protein Class 0; Mouse Urine Protein IgE <0.10 kU/L; Mugwort (W6) IgE <0.10 kU/L; Oak-White Class 0; Oak-White IgE <0.10 kU/L; Sycamore Class 0
== END 2025-03-19 12:51 | disposition home or self-care (01) ==
LOC: SUATTDRO → EDINP 01:53 → ED 01:53 → EDINP 08:34

== ENCOUNTER 2025-05-19 07:04 | Observation (INO) ==
--- NOTE | 2025-04-29 14:07 | PAT Medication Instructions ---
Medication Instructions Date of Service April 29, 2025 Home Medications Medication Instructions Recorded ibuprofen 600 mg tablet 600 mg PO TID PRN pain #20 tabs 08/21/22 prednisone 20 mg tablet 40 mg (2 x 20 mg) PO DAILY PRN 03/19/25 swelling #20 tabs ipratropium bromide 17 mcg/actuation HFA aerosol inhaler 2 inh inhalation UD PRN Shortness Of Breath Or Wheezing simvastatin 20 mg tablet 20 mg PO HS calcium carbonate (Calcium 600) 1,200 mg PO QAM multivitamin 1 tab PO QAM ibuprofen 600 mg tablet 600 mg PO TID PRN pain prednisone 20 mg tablet 40 mg (2 x 20 mg) PO DAILY PRN swelling acyclovir 400 mg tablet 200 mg PO QAM coenzyme Q10 200 mg capsule (Co Q-10) 200 mg PO QAM fexofenadine 180 mg tablet 90 mg PO QAM fluticasone propionate 50 mcg/actuation nasal spray,suspension 2 spray intranasal QAM glucosamine sulf dipot chlr,msm,chond 550 mg-C 30 mg-natalya 1 mg capsule (Glucosamine Chondroitin) 1 cap PO BID iron,carbonyl 65 mg-vitamin C 125 mg tablet,delayed release (Vitron-C) 1 tab PO UD Continue as directed acyclovir 400 mg tablet 200 mg PO QAM ASK your surgeon for instructions ibuprofen 600 mg tablet 600 mg PO TID PRN pain STOP taking 2 weeks before surgery (or as soon as possible if surgery is within 2 weeks) glucosamine sulf dipot chlr,msm,chond 550 mg-C 30 mg-natalya 1 mg capsule (Glucosamine Chondroitin) 1 cap PO BID DO NOT take the morning of surgery calcium carbonate (Calcium 600) 1,200 mg PO QAM multivitamin 1 tab PO QAM fexofenadine 180 mg tablet 90 mg PO QAM iron,carbonyl 65 mg-vitamin C 125 mg tablet,delayed release (Vitron-C) 1 tab PO UD Take morning of surgery With a small sip of water, OTHERWISE NOTHING TO EAT OR DRINK AFTER MIDNIGHT: ipratropium bromide 17 mcg/actuation HFA aerosol inhaler 2 inh inhalation UD PRN Shortness Of Breath Or Wheezing (if needed) prednisone 20 mg tablet 40 mg (2 x 20 mg) PO DAILY PRN swelling (if needed) fluticasone propionate 50 mcg/actuation nasal spray,suspension 2 spray intranasal QAM Take evening before surgery ipratropium bromide 17 mcg/actuation HFA aerosol inhaler 2 inh inhalation UD PRN Shortness Of Breath Or Wheezing (if needed) simvastatin 20 mg tablet 20 mg PO HS prednisone 20 mg tablet 40 mg (2 x 20 mg) PO DAILY PRN swelling (if needed) Other Notes If you have any questions please call us at [phone] or [phone] or [phone] or [phone]
--- NOTE | 2025-05-05 10:15 | Anesthesiology Consultation ---
Date of Service May 05, 2025 Assessment & Plan (1) Encounter for pre-operative examination: - allergy office visit 03/20/25 [place]: "...most likely to be idiopathic angioedema. However, we will perform blood work to rule out hereditary angioedema, acquired angioedema, mast cell disorders as potential etiologies. In the meantime, I recommend that she take cetirizine 10 mg p.o. twice daily and that she continue this until she is back from [place] as this should give her protection against another episode. In some cases, these reactions never occur again and is just a one-time random episode. However, in some patients it can return again in patients can develop chronic idiopathic urticaria/angioedema. I also prescribed hydroxyzine which should be used in the very first sign of swelling or for mild swelling episodes. If she has moderate to severe swelling episodes or she tries a dose of hydroxyzine and after 30 minutes symptoms are not improving, then I would recommend she do prednisone 40 mg as a single dose and it should abort an attack..." - Outpatient joint assessment: Patient is currently scheduled for inpatient pathway. If re-evaluated and patient/surgeon requests outpatient pathway, patient could be an acceptable candidate for outpatient joint program. Chart Review Chart Review: Acceptable Risk for Surgery and Patient seen in Pre Admission Testing Teaching & Discussion Pre-Anesthesia Teaching/Discussion Notes: Instructed NPO after midnight before surgery, except medications with 15 cc of water. Medication instructions provided according to the PAT guidelines. History Surgery Operation Date: 05/19/25 07:00 Proposed Procedures p Left Total Knee Arthroplasty - Peter Hilario MD Height/Weight Height: 5 ft 5.5 in Weight: 71.1 kg Allergies Allergy/AdvReac Type Severity Reaction Status Date / Time amoxicillin Allergy Intermediate RASH Verified 04/23/25 12:46 Penicillins Allergy Intermediate Rash Verified 04/23/25 12:46 Sulfa (Sulfonamide Allergy Intermediate Rash Verified 04/23/25 12:46 Antibiotics) sulfamethoxazole Allergy Intermediate RASH Verified 04/23/25 12:46 trimethoprim Allergy Intermediate RASH Verified 04/23/25 12:46 lisinopril AdvReac Unknown patient Verified 05/05/25 10:34 requests NO lisinopril due to idiopathic angioedema Medications Home Medications Medication Instructions Recorded Confirmed Last Taken ipratropium bromide 17 2 inh inhalation UD PRN Shortness 09/03/2704/23/25 08/20/22 10:00 mcg/actuation HFA aerosol inhaler Of Breath Or Wheezing simvastatin 20 mg tablet 20 mg PO HS 03/17/19 04/23/25 08/20/22 19:00 calcium carbonate (Calcium 600) 1,200 mg PO QAM 08/03/22 04/23/25 08/20/22 19:00 multivitamin 1 tab PO QAM 08/03/22 04/23/25 08/20/22 08:00 ibuprofen 600 mg tablet 600 mg PO TID PRN pain #20 tabs 08/21/22 04/23/25 Unknown prednisone 20 mg tablet 40 mg (2 x 20 mg) PO DAILY PRN 03/19/25 04/23/25 Unknown swelling #20 tabs acyclovir 400 mg tablet 200 mg PO QAM 04/23/25 04/23/25 Unknown coenzyme Q10 200 mg capsule (Co 200 mg PO QAM 04/23/25 04/23/25 Unknown Q-10) fexofenadine 180 mg tablet 90 mg PO QAM 04/23/25 04/23/25 Unknown fluticasone propionate 50 2 spray intranasal QAM 04/23/25 04/23/25 Unknown mcg/actuation nasal spray,suspension glucosamine sulf dipot 1 cap PO BID 04/23/25 04/23/25 Unknown chlr,msm,chond 550 mg-C 30 mg-natalya 1 mg capsule (Glucosamine Chondroitin) iron,carbonyl 65 mg-vitamin C 125 1 tab PO UD 04/23/25 04/23/25 Unknown mg tablet,delayed release (Vitron-C) Additional Notes: 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 Past Medical History Medical History (Updated 05/05/25 @ 16:01 by Shantal Lisa PA-C) Asthma Exercise induced- uses inhaler daily Elevated blood pressure reading in office without diagnosis of hypertension reports onset since started having some anxiety regarding surgery, PCP monitoring Hx of migraine headaches has not had one in decades Hx of syncope "many years ago, due to postional vertigo, resolved with PT" Hyperlipidemia Idiopathic angioedema patient requests/states is NOT to receive lisinopril out of precaution/concern given known profile with angioedema Nausea and vomiting after administration of anesthetic agent THIAGO (obstructive sleep apnea) CPAP-compliant Retinal detachment (~1982) w/ B/L repair 1982 Telangiectasia Tongue swelling (~03/19/25) hx, 03/19/25, evaluated in [place], no known cause found; seen next day by Kenneth, all testing completed, no cause found-now resolved-denies recurrence Patient denies h/o stroke, seizures, heart attack, heart failure, DM, blood clots/DVTs or blood transfusions. Exercise / Class Metabolic Activity II 4-5 Yardwork/Stairs/Walk up hill (denies chest discomfort or shortness of breath walking up one flight of stairs) Past Family History Family History Father Myocardial infarction Uncle Myocardial infarction Mother Hypertension hemorrhagic stroke Stroke hemorrhagic stroke, severe HTN Denies family history of Ovarian cancer Prostate cancer Breast cancer Colorectal cancer Past Surgical History Surgical History History of salpingo-oophorectomy (2022) left History of tonsillectomy and adenoidectomy Hx of blepharoplasty b/l Hx of colonoscopy Hx of left cataract extraction Hx of removal of cyst finger S/P dilation and curettage S/P eye surgery (1982) retinal detachment, b/l S/P wisdom tooth extraction Past Anesthesia History No Hx of Anesthesia Complications and No Family Hx of Anesthesia Complications History of PONV History of PONV (scop patch with surgery 1 year ago) and Hx of Motion Sickness Social History Smoking Status: Never smoker Do You Dip or Chew Tobacco: No Hx Alcohol Use: Yes alcohol intake frequency: a few times a week Alcohol Intake Frequency Comment: 1-2 drinks/week Hx Substance Use: No substance use type: does not use Review of Systems Patient denies chest pain, shortness of breath, dyspnea on exertion, reflux, fever, chills, cough, wheezing, or palpitations. Physical Exam Vital Signs Vitals BP 133/79 P 80 TEMP 98.1 SP02 95% on RA RESP 18 Physical Patient resting comfortably in chair in no acute distress, alert and oriented, responding appropriately throughout visit Full cervical extension range of motion without pain TMD 3 finger breadths Mallampati Score 3 Dentition: implant front upper tooth, denies chipped or loose teeth, caps/crowns, or bridges Lungs: normal respiratory effort. Good air movement, clear throughout to auscultation, no adventitious breath sounds Cardiac: regular rate and rhythm, no murmurs noted Carotid arteries: negative bruit bilat Lab Results Anesthesia Preop Results Results Anesthesia Widget: WBC 6.62 K/ul (4.8-10.8) 05/05/25 Hgb 12.5 g/dl (12.0-16.0) 05/05/25 Hct 38.6 % (37.0-47.0) 05/05/25 Plt 271 K/uL (130-400) 05/05/25 Na 140 mmol/L (136-145) 03/20/25 K 3.9 mmol/L (3.5-5.1) 03/20/25 Cl 103 mmol/L (98-107) 03/20/25 CO2 28 mmol/L (21-32) 03/20/25 BUN 18 mg/dl (6-23) 03/20/25 Creat 0.74 mg/dl (0.6-1.2) 03/20/25 Glucose Level 115 mg/dl (70-99(Fasting)) H 03/20/25 PT 10.3 Seconds (9.0-12.0) 05/05/25 PTT 26 Seconds (21-31) 05/05/25 INR 1.0 (0.9-1.1) 05/05/25 TSH 0.650 uIu/ml (0.300-4.500) 03/20/25 Blood Type A Positive 05/05/25 Antibody Screen NEGATIVE 05/05/25 Testing Electrocardiogram Date: 05/05/25 NSR, rate 65 bpm Chest X-Ray Date: 05/05/25 No acute findings. Other Testing Soft tissue neck CT 03/19/25 Focal asymmetry/thickening is noted involving right side of dorsum of tongue without obvious enhancement. Suboptimal evaluation of the oral cavity due to extensive metallic artifacts from the dental implants.
--- NOTE | 2025-05-11 12:59 | History & Physical Report ---
Date of Service May 11, 2025 Assessment & Plan (1) Left knee DJD: 70-year-old very active female with advanced left knee arthritis. She has got tricompartment disease. Is affecting her quality of life and she would like to have her knee fixed. Plan: Organ to take her to the operating room and do a left knee replacement. The risks and benefits of this procedure explained. Informed consent was obtained. Will use aspirin for DVT prophylaxis. She is planning to stay in the hospital overnight and likely discharge postoperative day 1. History of Present Illness Chief Complaint: . Persistent left knee pain and discomfort. Primary Care Provider: Gabby Broussard PA-C . The patient is a 70-year-old very active female who presents for definitive treatment of her left knee. She is currently retired from both [employer] and [employer]. Over the past several years she developed increased pain discomfort of left knee describes gotten worse over time. She is very active trying to play golf and swimming among other activities but have more more difficulty doing this. She been through extensive conservative treatment including injections with 5 very temporary relief. Pain is mostly anterior medial. It is affecting her ability to maintain an active lifestyle. She like to have her knee fixed. Allergies Allergy/AdvReac Type Severity Reaction Status Date / Time amoxicillin Allergy Intermediate RASH Verified 04/23/25 12:46 Penicillins Allergy Intermediate Rash Verified 04/23/25 12:46 Sulfa (Sulfonamide Allergy Intermediate Rash Verified 04/23/25 12:46 Antibiotics) sulfamethoxazole Allergy Intermediate RASH Verified 04/23/25 12:46 trimethoprim Allergy Intermediate RASH Verified 04/23/25 12:46 lisinopril AdvReac Unknown patient Verified 05/05/25 10:34 requests NO lisinopril due to idiopathic angioedema Home Medications Medication Instructions Recorded Confirmed Type ipratropium bromide 17 2 inh inhalation UD PRN Shortness 03/17/19 04/23/25 History mcg/actuation HFA aerosol inhaler Of Breath Or Wheezing simvastatin 20 mg tablet 20 mg PO HS 03/17/19 04/23/25 History calcium carbonate (Calcium 600) 1,200 mg PO QAM 08/03/22 04/23/25 History multivitamin 1 tab PO QAM 08/03/22 04/23/25 History ibuprofen 600 mg tablet 600 mg PO TID PRN pain #20 tabs 08/21/22 04/23/25 Rx prednisone 20 mg tablet 40 mg (2 x 20 mg) PO DAILY PRN 03/19/25 04/23/25 Rx swelling #20 tabs acyclovir 400 mg tablet 200 mg PO QAM 04/23/25 04/23/25 History coenzyme Q10 200 mg capsule (Co 200 mg PO QAM 04/23/25 04/23/25 History Q-10) fexofenadine 180 mg tablet 90 mg PO QAM 04/23/25 04/23/25 History fluticasone propionate 50 2 spray intranasal QAM 04/23/25 04/23/25 History mcg/actuation nasal spray,suspension glucosamine sulf dipot 1 cap PO BID 04/23/25 04/23/25 History chlr,msm,chond 550 mg-C 30 mg-natalya 1 mg capsule (Glucosamine Chondroitin) iron,carbonyl 65 mg-vitamin C 125 1 tab PO UD 04/23/25 04/23/25 History mg tablet,delayed release (Vitron-C) Past Med/Surg History Problem List Allergic reaction Left knee DJD [facility] Elevated blood pressure reading in office without diagnosis of hypertension reports onset since started having some anxiety regarding surgery, PCP monitoring Idiopathic angioedema patient requests/states is NOT to receive lisinopril out of precaution/concern given known profile with angioedema Tongue swelling (~03/19/25) hx, 03/19/25, evaluated in [place] ER, no known cause found; seen next day by Kenneth, all testing completed, no cause found-now resolved-denies recurrence Hx of syncope "many years ago, due to postional vertigo, resolved with PT" Hyperlipidemia Nausea and vomiting after administration of anesthetic agent THIAGO (obstructive sleep apnea) CPAP-compliant Asthma Exercise induced- uses inhaler daily Retinal detachment (~1982) w/ B/L repair 1982 Telangiectasia Hx of migraine headaches has not had one in decades Surgical History Hx of blepharoplasty b/l Hx of left cataract extraction History of salpingo-oophorectomy (2022) left Hx of colonoscopy Hx of removal of cyst finger History of tonsillectomy and adenoidectomy S/P wisdom tooth extraction S/P eye surgery (1982) retinal detachment, b/l S/P dilation and curettage Family History Father Myocardial infarction Uncle Myocardial infarction Mother Hypertension hemorrhagic stroke Stroke hemorrhagic stroke, severe HTN Denies family history of Ovarian cancer Prostate cancer Breast cancer Colorectal cancer Social History Smoking Status: Never smoker Second Hand Exposure: No; Do You Dip or Chew Tobacco: No; Hx Alcohol Use: Yes Hx Substance Use: No Preferred Language: Romanian Communication Ability: Effective Visual Impairment: No Limitations Certified Retinal Angiographer Required: No Beliefs That Will Affect Care: None Current Living Situation: Spouse Feels Safe at Home: Yes Assistive Devices: Contacts, CPAP and Glasses Review of Systems All systems reviewed & are unremarkable except as noted in HPI & below. Physical Exam . Physical examination was a pleasant middle-age female. Looks me in excellent health. Examination left neuro patient ambulates independently. She has got slight varus alignment to her knee. Small knee effusion. She is tender over the medial joint line. Range of motion 0-1 25. No pain with hip motion. She is neurologically intact. Constitutional WD/WN, vitals as above Neck trachea midline, no thyromegaly Respiratory normal respiratory effort, lungs clear to auscultation Cardiovascular RRR, no murmur, no edema Gastrointestinal (Abdomen) normal bowel sounds, soft, nontender, no hepatosplenomegaly Results & Data Results & Data Laboratory Results . Diagnostic Findings . X-rays of the left knee were reviewed. Shows advanced left knee medial compartment DJD. The lateral compartment is pretty well-preserved. Some small osteophytes laterally. MRI of the left knee was also reviewed from June 2024. Shows advanced medial compartment arthritis. Got bone marrow changes medially and extrusion of her medial meniscus. PG Care Time/CCT Total # of Minutes Spent Total Time Spent with Patient: Total time spent is greater than 50% in coordination of care (as documented) at patient's floor/unit and/or counseling patient: Coding Level of Care Code None Diagnoses Left knee DJD M17.12
[~2025-05-19 07:04] MED LIST changes: -ACYC400T PO; -ALBUAER INH; +BUPIVACAINE 0.5 % 5 MG/1 ML PF 10ML VIAL ONE; -CALCIUM W/D PO; -COEN10CA5 PO; -FEXO1TAB46 PO; -MULTCAP42 PO; -OMEGCAP2 PO; -ONDA4TAB7 SL; +ROPIVACAINE 0.5% 5 MG/ML 30 ML VIAL ONE
[2025-05-19] MEDS ORDERED: MIDAZOLAM HCL 1 MG/ML 2ML VIAL ONE (07:16)
[2025-05-19] MEDS ORDERED: ONDANSETRON INJ 2 MG/ML 2 ML VIAL ONE (07:16)
[2025-05-19] MEDS: LR 500ML BOLUS, THEN 15ML/HR IV SCH (07:48)
[2025-05-19] MEDS: LR 60ML/HR IV SCH (07:49)
[2025-05-19] MEDS: CeleBREX 200 MG CAP PO SCH (07:49)
[2025-05-19] MEDS: FAMOTIDINE 20 MG TAB PO SCH (07:49)
[2025-05-19] MEDS: METOCLOPRAMIDE HCL 10 MG TABLET PO SCH (07:49)
[2025-05-19] MEDS: ACETAMINOPHEN 500 MG TAB PO SCH ×2 (07:49→13:03)
[2025-05-19] MEDS: dexAMETHasone**PF** 10 MG/ML VIAL IV SCH (07:49)
[2025-05-19] MEDS ORDERED: ONDANSETRON INJ 2 MG/ML 2 ML VIAL IV PRN (08:06)
[2025-05-19] MEDS ORDERED: ATROPINE SULFATE 0.1 MG/ML 10ML SYR IV PRN (08:06)
[2025-05-19] MEDS ORDERED: PROPOFOL IV EMULSION 10 MG/ML 20 ML VIAL IV ONE ×3 (08:30→12:55)
--- NOTE | 2025-05-19 08:45 | History & Physical Bridge Note ---
Date of Service May 19, 2025 History & Physical Bridge Note I have examined the patient, reviewed the History & Physical and in the interval since the performance of the History & Physical I have noted the following changes of clinical significance: no changes noted
[2025-05-19] MEDS ORDERED: ePHEDrine sulfate 50 MG/5 ML SYR ONE (09:48)
[2025-05-19] MEDS: ROPIV 0.5% 246mg, Ketorolac 30mg, EPINEPHrine 0.5mg in NSS INFIL SCH (09:52)
[2025-05-19] MEDS: ORTHO JOINT ANESTHETIC ONE (09:52)
--- NOTE | 2025-05-19 11:08 | Operative Report ---
PG Post Operative Report Pre & Post Diagnosis Operation Date: 05/19/25 08:50 Pre-Op Diagnosis: Left Knee Osteoarthritis Post-Op Diagnosis: Left Knee Osteoarthritis I identified the patient and participated in the time-out.: Yes Procedure Operation Date: 05/19/25 08:50 Actual Procedures p Left Total Knee Arthroplasty(Left) - Peter Hilario MD Surgeon Peter Hilario MD [employer] Kuldeep Swanson PA-C Estimated Blood Loss 50 Findings Consistent with Post-Op Diagnosis Operative findings reveal advanced left knee medial compartment DJD. She had extensive grade 4 [id number] disease of the medial femoral condyle medial tibial plateau. Fairly mild degenerative changes elsewhere. Slight varus deformity to her knee with a moderate-sized knee joint effusion. Osteophytes primarily medially. Specimens Left knee sent for pathology Anesthesia Type Spinal MAC Complications none Disposition Accompanied Patient To Recovery: No Indications Patient is a 7-year-old fairly active female whose had a several year history of increasing left knee pain discomfort described to gotten worse over time. She failed conservative measures. X-rays show advanced medial compartment arthritis. She elected proceed with total knee arthroplasty. Description of Procedure Operative implants consist of: 1 Biomet Vanguard size 62.5 left posterior stabilized femoral component. 2. Biomet size 67 tibial tray. 3. 10 mm posterior stabilized polyethylene bearing. 4. 28 x 8 all poly patella. The patient was taken the op room, identified, placed on the operating table in the supine position. All contact areas were appropriately padded. IV antibiotics arrived by anesthesia team. Spinal anesthetic and adductor canal block had been provided in the holding area. A Cruz catheter was placed in sterile fashion. A left phytate was then placed in the left lower extremity was then prepped and draped in usual sterile fashion. The left leg was elevated and exsanguinated with use of an Esmarch and tourniquet placed at 300 mmHg. An anterior approach left knee was then performed to longitudinal incision centered over the patella. Sharp dissection was got through subcutaneous tissue down the extensor mechanism. A medial parapatellar arthrotomy incision was made. Some subperiosteal dissection was carried out medially. The fat pad was resected from the patella tendon. The lateral patellofemoral ligament was released. Patella subluxated laterally and the knee was flexed. The osteophytes were taken off distal femur. The ACL and PCL were then released from distal femur and the tibia subluxated anteriorly. The external tibial alignment jig was then placed on the anterior face of the tibia adjusted 14 mm medially. The proximal tibial cut was made remove about a millimeter or 2 of bone from the medial side. Some osteophytes taken off medially. The tibia was sized to a size 67. Attention drawn the femur. The distal femur was then with a sharp drill. Intramedullary canal was suction. A left 5 degree valgus cutting guide was placed. The distal femoral cutting block was pinned in place. The distal femoral cut was made take an additional 3 mm of bone off distal femur. The femur was then sized to a size 63.5. The AP cutting block was pinned parallel to the epicondylar axis which was 5 degrees of external rotation. The anterior cut, anterior chamfer, posterior cut, posterior chamfer cuts were made. The box cutting guide was then placed and just slight lateral and the box cut was made. The knee was flexed. The remnants of the medial and lateral menisci were excised. The osteophytes taken off the posterior aspect of femur. A trial femoral component was placed. The tibial tray was pinned in Yue external rotation and the drill and stem punch used great defect in the proximal tibia for the tibial tray. The knee was then trialed and the 10 mm insert fit most appropriately. Attention drawn to the patella. The patella was cleaned of all soft tissues. Patella thickness measured about 19 mm in thickness was cut down to 13. Was sized to a size 28 patella. The lug holes were drilled for the 28 patella. The lateral osteophytes removed. Patella button was placed. Knee was taken through range of motion patella tracked nicely with no thumbs test. Attention jointer placed in permanent components. All trial components were removed. Bone plug was placed into distal femoral limb blood loss. A double batch [place] G cement was mixed. Biomet Vanguard size 62.5 left posterior stabilized femoral component, size 67 tibial tray, 10 mm pro stabilized polyethylene insert, and a 28 x 8 all poly patella then cemented in place. The knee was brought out into full extension till cement hardened. Final cement check was then performed. The pericapsular tissues were injected with total of 100 cc of Ortho mix. The patient did receive 1 g tranexamic acid. The tourniquet was then let down for final tourniquet time of 54 minutes. Hemostasis assured with electrocautery. Extensor Meclomen closed combination 1 PDS suture #1 Vicryl suture in a [id number] fashion. Extensor Meclomen checked found to be intact. Subcutaneous tissue then closed with 2 Dexon suture in a buried interrupted fashion and the skin was closed with skin judie. The leg was then cleaned and dried and a sterile dressing with Xeroform, 4 fours, sterile cast padding, Timoteo bandage were applied. Patient then transferred to the recovery room in stable condition. Patient tolerated procedure well and there were no complications. Kuldeep Swanson, my physician aquatics assistant department head, was present for the entire procedure. His assistance was essential and required for appropriate patient positioning, prepping and draping, surgical exposure, performing the technical details of the operation, placement the implants, closure of the wound, and placement of the sterile bandage. I attest to the content of the Intraoperative Record and any orders documented therein. Any exceptions are noted below.
--- NOTE | 2025-05-19 11:28 | XRay Report ---
XR knee LT 1 or 2V routine CLINICAL HISTORY: Postoperative evaluation. COMPARISON: Left knee radiographs February 09, 2025. FINDINGS: Alignment of the total left knee arthroplasty is anatomic. There is no periprosthetic frac ture or unexpected radiopaque foreign body. There are skin judie. IMPRESSION: Expected findings following total left knee arthroplasty. ACT 112: Negative or not required by law. Electronically signed by: Derek Hatfield M.D. 05/19/2025 11:27 AM
[2025-05-19] MEDS: SODIUM CHLORIDE 0.9% 1,000 ML IV SCH (12:30)
[2025-05-19] MEDS ORDERED: ALUMINUM/MAGNESIUM SUSP 30 ML UDC PO PRN (12:33)
[2025-05-19] MEDS ORDERED: HYDROmorphone INJ 0.5 MG/0.5 ML SYR IV PRN (12:33)
[2025-05-19] MEDS ORDERED: IPRATROPIUM BROMIDE HFA INHALER INH PRN (12:33)
[2025-05-19] MEDS ORDERED: NALOXONE HCL 0.4 MG/1 ML VIAL/CARP IV PRN (12:33)
[2025-05-19] MEDS ORDERED: MAGNESIUM HYDROXIDE SUSP 30 ML UDC PO PRN (12:33)
[2025-05-19] MEDS: KETOROLAC TROMETHAMINE 15 MG/ML VIAL IV SCH (13:03)
--- NOTE | 2025-05-19 13:11 | Anesthesiology Progress Note ---
Date of Service May 19, 2025 Anesthesia Post Procedure Vital Signs Vital Signs: Temp Pulse Pulse Resp BP Pulse Ox O2 Del Method 05/19/25 12:56 97.5 F L 95 H 16 127/69 96 Room Air 05/19/25 12:10 85 19 111/55 L 97 Room Air 05/19/25 11:55 97.7 F 72 14 116/55 L 97 Room Air 05/19/25 11:45 77 16 115/54 L 97 Room Air 05/19/25 11:35 76 12 101/55 L 96 Room Air 05/19/25 11:25 69 15 104/51 L 95 Room Air 05/19/25 11:15 77 16 99/51 L 96 Room Air 05/19/25 11:05 97.0 F L 85 18 91/58 L 95 Room Air 05/19/25 07:37 98.2 F 69 20 143/72 H 96 Room Air Transfer of Care Handoff Completed per policy Notes Mental Status: alert / awake / arousable and participated in evaluation Patient Amnestic to Procedure: Yes Nausea / Vomiting: adequately controlled Pain: adequately controlled Airway Patency, RR, SpO2: stable & adequate BP & HR: stable & adequate Hydration State: stable & adequate Neuraxial Anesthesia: was administered and sensory block is resolving Anesthetic Complications: no major complications apparent and Pt Satisfied with anesthetic care
[2025-05-19] MEDS: ASCORBIC ACID 500 MG TAB PO SCH (18:18)
[2025-05-19] MEDS: TRANEXAMIC ACID / 0.7% NACL 1,000 MG/100 ML BAG IV SCH (18:19)
[2025-05-19] MEDS ORDERED: NON-FORMULARY MEDICATION (Glucos Sul 2kcl-Msm-Chond-C-Mn [Glucosamine Chondroitin] 550-30- PO SCH (21:00)
[2025-05-19] MEDS ORDERED: SENNA 8.6 MG TAB PO SCH (21:00)
[2025-05-19] MEDS: DOCUSATE SODIUM 100 MG CAP PO SCH (21:33)
[2025-05-19] MEDS: SENNA 8.6 MG TAB PO SCH (21:33)
[2025-05-19] MEDS: SIMVASTATIN 20 MG TAB PO SCH (21:34)
[2025-05-19] MEDS: ASPIRIN 81 MG ECTAB PO SCH (21:34)
[2025-05-20 05:20] VITALS: RESP 16; TEMP 98.2
[2025-05-20 07:32] LABS: Hematocrit (blood only) 29.3 % (37.0-47.0); Hemoglobin 9.6 g/dL (12.0-16.0); Mean Corpuscular Hemoglobin 30.2 pg (25.0-34.0); Mean Corpuscular Volume 92.1 fL (80.0-100.0); Platelet Count 238 K/uL (130-400); RDW Standard Deviation 44.7 fL (36.4-46.3); Red Blood Count 3.18 M/uL (4.20-5.40); White Blood Count 11.29 K/ul (4.8-10.8)
[2025-05-20 07:50] LABS: Anion Gap 5.0 (3-11); Blood Urea Nitrogen 16.0 mg/dl (6-23); Calcium 8.8 mg/dl (8.6-10.3); Carbon Dioxide 28.0 mmol/L (21-32); Chloride 104.0 mmol/L (98-107); Creatinine Clr Calc Pharmacy 64.9 ml/min; Glucose 111.0 mg/dl (70-99(Fasting)); Potassium 4.1 mmol/L (3.5-5.1); Sodium 137.0 mmol/L (136-145)
[2025-05-20 07:55] VITALS: BP 114/66; PULSE 71; O2SAT 93
[2025-05-20] MEDS: ONDANSETRON INJ 2 MG/ML 2 ML VIAL IV PRN (08:03)
--- NOTE | 2025-05-20 08:22 | Orthopedic Progress Note ---
Date of Service May 20, 2025 Assessment & Plan (1) Status post total left knee replacement: * Continue Current Treatment * Mild syncopal event this morning, EKG ordered * Symptoms improved when in bed, most recent BP 114/66, no further orders at this time, will monitor symptoms with PT later this morning * Disposition: Home * Daily treatment: Physical Therapy/ Occupational Therapy per protocol * Weight bearing status: WBAT * Continue to monitor for ABLA * Pain control * DVT prophylaxis, ASA * Office/hospital f/u 2 weeks for progress check and staple/suture removal * Plan for discharge today pending PT/OT clearance Subjective .Active Problems: S/p left TKA POD 1 70y/o female s/p left TKA. Doing well overall, pain managed and improved function. Does report light syncopal event earlier this morning, felt dizzy/lightheaded while sitting on the toilet and had to be lowered to the ground with the assist of nursing staff. No true fall, head strike, or injury to knee. Patient currently in bed and notes overall improvement of symptoms. Denies fever/chills, chest pain/SOB, nausea/vomiting. Otherwise no complaints. Review of Systems All systems reviewed & are unremarkable except as noted in HPI & below. Physical Exam . * General: Alert and oriented, no acute distress * Constitutional: well-developed, well-nourished. * Respiratory: Normal respiratory effort, no distress * Gastrointestinal: No tenderness to palpation, no rigidity or guarding. * Skin: No rash or lesion. * Neurologic: Grossly normal * Musculoskeletal: Left knee surgical dressing with early bleeding noted to the distal aspect of the incision, not removed for exam. Otherwise no obvious deformity or overlying skin changes RLE. Diffuse TTP distal thigh and knee region. Otherwise no specific tenderness of proximal thigh, lower leg, foot/ankle. AROM knee flexion [] degrees. AROM foot/ankle intact. Sensation intact plantar/dorsal foot. Brisk capillary refill. Results & Data Results & Data Laboratory Results . Diagnostic Findings . Knee X-Ray 05/19/25 11:01 XR knee LT 1 or 2V routine CLINICAL HISTORY: Postoperative evaluation. COMPARISON: Left knee radiographs February 09, 2025. FINDINGS: Alignment of the total left knee arthroplasty is anatomic. There is no periprosthetic fracture or unexpected radiopaque foreign body. There are skin judie. IMPRESSION: Expected findings following total left knee arthroplasty. ACT 112: Negative or not required by law. Electronically signed by: Derek Hatfield M.D. 05/19/2025 11:27 AM PG Care Time/CCT Total # of Minutes Spent Total Time Spent with Patient: Total time spent is greater than 50% in coordination of care (as documented) at patient's floor/unit and/or counseling patient: Coding Level of Care Code 79102 Post Operative Follow-Up Diagnoses Status post total left knee replacement Z96.652
[2025-05-20] MEDS ORDERED: MULTIVITAMIN TAB PO SCH (09:00)
[2025-05-20] MEDS: dexAMETHasone 10 MG in SYRINGE 0 ML IV SCH (09:13)
[2025-05-20] MEDS: FEXOFENADINE HCL 180 MG TAB PO SCH (09:13)
[2025-05-20] MEDS: MULTIVITAMIN TAB PO SCH (09:14)
[2025-05-20] MEDS: FLUTICASONE PROPIONATE NA SPR 16 GM BTL SCH (09:15)
[2025-05-20] MEDS: CALCIUM CARBONATE 500 MG CHEWABLE TAB PO SCH (09:26)
[2025-05-20] MEDS: METOCLOPRAMIDE HCL INJ 5 MG/ML 2 ML VIAL IV PRN (09:27)
--- NOTE | 2025-05-22 19:47 | Electrocardiogram Report ---
Test Reason : Blood Pressure : */* mmHG Vent. Rate : 67 BPM Atrial Rate : 67 BPM P-R Int : 150 ms QRS Dur : 86 ms QT Int : 422 ms P-R-T Axes : 30 -1 3 degrees QTcB Int : 445 ms Normal sinus rhythm Minimal voltage criteria for LVH, may be normal variant ( R in aVL ) Borderline ECG When compared with ECG of 05-May-2025 10:56, T wave inversion now evident in Inferior leads T wave amplitude has decreased in Lateral leads Confirmed by Maxim Ferreira ([id number]) on 05/22/2025 7:47:20 PM Referred By: Peter Hilario Confirmed By: Maxim Ferreira
== END 2025-05-20 13:02 | disposition home health service (06) ==
LOC: ASU 07:04 → 3N 07:04 → 3W 05-20 01:53